=== PATIENT | female | born 1970 | race Caucasian/White ===

== ENCOUNTER 2017-08-27 15:27 | Emergency (ER) | payer MEDICAID ==
[~2017-08-27] VITALS: Ht 152.4 cm; Wt 86.0 kg
[~2017-08-27 15:27] MED LIST: ASPI-515 PO; ATEN50TA41 PO; CARV6.252 PO; ENAL20TA PO; HYDR12.58 PO; PARO10TA3 PO; RANI-276 PO
[2017-08-27] MEDS ORDERED: ASPIRIN 81 MG TABLET CHEW PO ONE (16:00)
[2017-08-27] MEDS ORDERED: ASPIRIN 81 MG TABLET CHEW ONE (16:14)
[2017-08-27 16:19] LABS: HEMATOCRIT 45.1 % (34.6-47.8); HEMOGLOBIN 15.1 g/dL (11.7-16.4); WHITE BLOOD COUNT 10.3 x10^3/uL (3.4-10)
[2017-08-27 16:30] LABS: BLOOD UREA NITROGEN 9 mg/dL (7-18)
[2017-08-27 16:36] LABS: IS PT STATUS REG ER OR PRE ER? YES
[2017-08-27 18:30] VITALS: BP 141/60
== END 2017-08-27 18:53 | disposition home or self-care (01) ==
LOC: ED 18:30
DX: R20.2 Paresthesia of skin (principal); I10 Essential (primary) hypertension
CPT/HCPCS: 36415; 70450; 71010; 72125; 80048; 81003; 82040; 84484; 85025; 93005; 99285